=== PATIENT | male | born 1950 | race Caucasian/White ===

== ENCOUNTER → 2017-10-15 | Outpatient (CLI) | payer MEDICARE | END | disposition home or self-care (01) | LOC: CDC 10:45 | DX: Z01.810 Encounter for preprocedural cardiovascular examination (principal); K40.90 Unilateral inguinal hernia, without obstruction or gangrene, not specified as recurrent | CPT/HCPCS: 93000 ==

== ENCOUNTER 2017-10-29 05:09 | Day surgery (SDC) | payer OTHER, MEDICARE ==
[~2017-10-29] VITALS: Ht 167.6 cm; Wt 95.2 kg
[~2017-10-29 05:09] MED LIST: HYDROCHLOROTHIA25 MG PO; NEURONTIN300 MG PO; ZESTRIL40 MG PO
[2017-10-29] MEDS ORDERED: MOTRIN600 MG PO (09:48)
[2017-10-29] MEDS ORDERED: NORCO 5/3251 TABLET PO (09:48)
[2017-10-29 10:05] VITALS: BP 128/76
[2017-10-29 11:05] VITALS: BP 123/68
== END 2017-10-29 11:30 | disposition home or self-care (01) ==
LOC: SDC 05:09
PROC: 0YU60JZ Supplement Left Inguinal Region with Synthetic Substitute, Open Approach (ICD-10-PCS; principal; 2017-10-29)
DX: K40.90 Unilateral inguinal hernia, without obstruction or gangrene, not specified as recurrent (principal); I10 Essential (primary) hypertension; F17.210 Nicotine dependence, cigarettes, uncomplicated
CPT/HCPCS: C1781; J0131; J0690; J1885; J2250; J3010; S0020